=== PATIENT | male | born 1935 | race Caucasian/White ===

== ENCOUNTER 2021-05-15 11:18 | Emergency (ER) | payer MEDICARE, OTHER ==
[2021-05-15] MEDS ORDERED: Sodium Chloride 0.9% 10 ML Syringe FLUSH PRN (11:35)
[2021-05-15] MEDS ORDERED: Sodium Chloride 0.9% 1,000 ML IV SCH ×2 (11:45→12:45)
[2021-05-15 12:03] VITALS: BP 125/51; PULSE 56
[2021-05-15 12:15] LABS: ANION GAP 16.9 mmol/L (5-15)
[2021-05-15 12:56] LABS: CORONAVIRUS COVID-19 NAA NEGATIVE (NEGATIVE); RESPIRATORY SYNCYTIAL VIR NAA NEGATIVE (NEGATIVE)
[2021-05-15] MEDS ORDERED: Iopamidol 612 MG/ML 100 ML Bottle IVPUSH ONE (12:59)
[2021-05-15] MEDS ORDERED: Factor IX Complex Human 1,000 UNIT VIAL IV ONE (13:44)
== END 2021-05-15 18:13 | disposition home or self-care (01) ==
LOC: VM.ED 11:18
DX: I71.4 Abdominal aortic aneurysm, without rupture (principal); I48.91 Unspecified atrial fibrillation; E78.00 Pure hypercholesterolemia, unspecified; I10 Essential (primary) hypertension; N40.0 Benign prostatic hyperplasia without lower urinary tract symptoms; M10.9 Gout, unspecified; Z88.8 Allergy status to other drugs, medicaments and biological substances; Z79.01 Long term (current) use of anticoagulants; Z79.899 Other long term (current) drug therapy; Z20.822 Contact with and (suspected) exposure to COVID-19
CPT/HCPCS: 0241U; 36415; 74177; 80053; 81001; 82150; 83605; 83690; 83735; 84100; 84484; 85025; 85610; 85730; 86140; 87040; 93005; 93010; 96374; 99284; 99285-25; J7168; Q9967